=== PATIENT | female | born 1995 | race Caucasian/White ===

== ENCOUNTER 2016-05-14 12:07 | Emergency (ER) | payer MEDICAID ==
[2014-12-20 04:32] VITALS: BMI 24.1
[~2016-05-14 12:07] MED LIST: HYDROCODONE-APA1 TAB PO; IBUPROFEN600 MG PO; PRENAVITE1 TAB PO
== END 2016-05-14 14:02 | disposition left against medical advice (07) ==
LOC: D.ER 12:07
DX: R10.30 Lower abdominal pain, unspecified (principal)

== ENCOUNTER 2016-07-03 01:57 | Emergency (ER) | payer MEDICAID ==
[2014-12-20 04:32] VITALS: BMI 24.1
== END 2016-07-03 03:18 | disposition home or self-care (01) ==
LOC: D.ER 01:57
DX: J06.9 Acute upper respiratory infection, unspecified (principal); F41.9 Anxiety disorder, unspecified; F17.200 Nicotine dependence, unspecified, uncomplicated

== ENCOUNTER 2016-11-12 23:33 | Emergency (ER) | payer MEDICAID ==
[2014-12-20 04:32] VITALS: BMI 24.1
== END 2016-11-13 00:52 | disposition home or self-care (01) ==
LOC: D.ER 23:33
DX: O26.892 Other specified pregnancy related conditions, second trimester (principal); Z3A.17 17 weeks gestation of pregnancy; R00.2 Palpitations; T43.595A Adverse effect of other antipsychotics and neuroleptics, initial encounter; Y92.89 Other specified places as the place of occurrence of the external cause

== ENCOUNTER 2016-11-17 08:27 | Emergency (ER) | payer MEDICAID ==
[2014-12-20 04:32] VITALS: BMI 24.1
[2016-11-17 09:13] LABS: BASOPHILS 0 % (0-2); EOSINOPHILS 0.4 % (0-7); HEMATOCRIT 31.4 % (36.0-48.0); IMMATURE GRANULOCYTES 0.2 % (0-5); LYMPHOCYTES 15.8 % (15-50); MCH 32.3 pg (26.0-34.0); MCV 92.1 fL (80.0-100.0); MEAN PLATELET VOLUME 10.6 fL (7.4-10.4); MONOCYTES 6.5 % (2-11); NEUTROPHILS 77.1 % (40-80); RBC 3.41 10x6/uL (4.00-5.40); RDW 12.6 % (11.5-14.5)
[2016-11-17 09:18] LABS: PLATELET COUNT 172 10x3/uL (130-400)
[2016-11-17 09:35] LABS: ALBUMIN 3.3 g/dL (3.4-5.0); ALKALINE PHOSPHATASE 48 U/L (46-116); ALT (SGPT) 11 U/L (10-68); BILIRUBIN - TOTAL 0.11 mg/dL (0.2-1.3); CALC OSMOLALITY 270 mosm/kg (275-300); CALCIUM 8.2 mg/dL (8.5-10.1); CARBON DIOXIDE 24.9 mmol/L (21.0-32.0); CHLORIDE - SERUM 102 mmol/L (98-107); CREATININE - SERUM 0.5 mg/dL (0.6-1.3); GLUCOSE 79 mg/dL (74-106); POTASSIUM - SERUM 3.6 mmol/L (3.5-5.1); SODIUM 137 mmol/L (136-145); UREA NITROGEN 7 mg/dL (7-18); eGFR NON AFRICAN AMERICAN > 90 mL/min (90-120)
[2016-11-17 10:32] LABS: APPEARANCE HAZY (CLEAR); BILIRUBIN NEGATIVE (NEGATIVE); COLOR YELLOW (YELLOW); GLUCOSE NEGATIVE (NEGATIVE); KETONE NEGATIVE (NEGATIVE); LEUKOCYTE ESTERASE TRACE (NEGATIVE); NITRITE NEGATIVE (NEGATIVE); PROTEIN NEGATIVE (NEGATIVE); UROBILINOGEN NORMAL (NORMAL)
[2016-11-17 10:35] LABS: BACTERIA MANY /hpf (NONE SEEN); MUCUS >1+ /lpf (NONE SEEN); WHITE CELLS - URINE 0-5 /hpf (0-5)
== END 2016-11-17 11:37 | disposition home or self-care (01) ==
LOC: D.ER 08:27
PROVIDERS: Family Medicine
DX: O26.892 Other specified pregnancy related conditions, second trimester (principal); Z3A.18 18 weeks gestation of pregnancy; R10.9 Unspecified abdominal pain

== ENCOUNTER → 2017-02-23 15:50 | Outpatient (CLI) | payer MEDICAID ==
[2014-12-20 04:32] VITALS: BMI 24.1
== END | disposition home or self-care (01) ==
LOC: D.LDO 15:50
DX: O26.893 Other specified pregnancy related conditions, third trimester (principal); Z3A.31 31 weeks gestation of pregnancy

== ENCOUNTER → 2017-02-26 18:19 | Outpatient (CLI) | payer MEDICAID ==
[2014-12-20 04:32] VITALS: BMI 24.1
== END | disposition home or self-care (01) ==
LOC: D.LDO 18:19
DX: Z34.93 Encounter for supervision of normal pregnancy, unspecified, third trimester (principal); Z3A.32 32 weeks gestation of pregnancy

== ENCOUNTER → 2017-03-03 16:22 | Outpatient (CLI) | payer MEDICAID ==
[2014-12-20 04:32] VITALS: BMI 24.1
== END | disposition home or self-care (01) ==
LOC: D.LDO 16:22
DX: O09.893 Supervision of other high risk pregnancies, third trimester (principal); Z3A.33 33 weeks gestation of pregnancy

== ENCOUNTER → 2017-03-06 13:08 | Outpatient (CLI) | payer MEDICAID ==
[2014-12-20 04:32] VITALS: BMI 24.1
== END | disposition home or self-care (01) ==
LOC: D.LDO 13:08
DX: O26.893 Other specified pregnancy related conditions, third trimester (principal); Z3A.34 34 weeks gestation of pregnancy

== ENCOUNTER → 2017-03-10 13:28 | Outpatient (CLI) | payer MEDICAID ==
[2014-12-20 04:32] VITALS: BMI 24.1
== END | disposition home or self-care (01) ==
LOC: D.LDO 13:28
DX: O26.893 Other specified pregnancy related conditions, third trimester (principal); Z3A.34 34 weeks gestation of pregnancy

== ENCOUNTER → 2017-03-14 14:03 | Outpatient (CLI) | payer MEDICAID ==
[2014-12-20 04:32] VITALS: BMI 24.1
== END | disposition home or self-care (01) ==
LOC: D.LDO 14:03
DX: O09.893 Supervision of other high risk pregnancies, third trimester (principal); Z3A.34 34 weeks gestation of pregnancy

== ENCOUNTER → 2017-03-19 16:15 | Outpatient (CLI) | payer MEDICAID ==
[2014-12-20 04:32] VITALS: BMI 24.1
== END | disposition home or self-care (01) ==
LOC: D.LDO 16:15
DX: O26.893 Other specified pregnancy related conditions, third trimester (principal); Z3A.35 35 weeks gestation of pregnancy

== ENCOUNTER 2017-04-01 04:59 | Inpatient (IN) | payer MEDICAID ==
[~2017-04-01] VITALS: Ht 167.6 cm; Wt 71.8 kg
[2017-04-01] VITALS (13 sets, daily range): BP systolic 114–130; BP diastolic 56–74; Ht 167.6 cm; Wt 71.8 kg
--- NOTE | ~2017-04-01 | DS ---
PATIENT:TETO MANSFIELD :89 MEDICAL RECORD: [id number] DISCHARGE SUMMARY ADMISSION DATE: 04/01/17 DISCHARGE DATE: 04/03/17 DATE OF ADMISSION: 04/01/2017. DATE OF DISCHARGE: 04/03/2017. ADMISSION DIAGNOSIS: at term. DISCHARGE DIAGNOSIS: at term. PROCEDURE: section. HISTORY OF PRESENT ILLNESS: See the H&P in the chart. SUMMARY OF HOSPITALIZATION: The patient was admitted with a history of prior section. The patient has had a previous history of abruptio placenta. The patient underwent repeat section without incident and at the time of discharge, tolerating regular diet with adequate pain control on oral medications. She is reporting a headache at this time. She is up, appearing very comfortable with tending to the . I will discharge her with Fioricet. The patient's vital signs are stable. No clinical evidence of preeclampsia. Followup early next week for staple removal. Standard and postoperative precautions have been reviewed. TRANSINT:[id number] Voice Confirmation ID: [id number] DOCUMENT ID: [id number] REILLY REDDY MD at 0658 CC: [id number] DICTATION DATE: 04/03/17 1009 WHEEL OF FORTUNE DEALER: 04/03/17 1540 DIS IN 04/03/17 [id number] [place] [address]
[2017-04-01 05:53] LABS: HEMOGLOBIN 9.9 g/dL (12-16); MCH 30.7 pg (26.0-34.0); MCV 92.9 fL (80.0-100.0); MEAN PLATELET VOLUME 10.9 fL (7.4-10.4); RBC 3.23 10x6/uL (4.00-5.40); RDW 12.7 % (11.5-14.5); WBC 10.5 10x3/uL (4.8-10.8)
[2017-04-01 06:22] LABS: APPEARANCE CLOUDY (CLEAR); COLOR YELLOW (YELLOW)
[2017-04-01 06:23] LABS: BILIRUBIN NEGATIVE (NEGATIVE); GLUCOSE NEGATIVE (NEGATIVE); KETONE NEGATIVE (NEGATIVE); NITRITE NEGATIVE (NEGATIVE); PROTEIN 1+ mg/dL (NEGATIVE); UROBILINOGEN NORMAL (NORMAL)
[2017-04-01 06:25] LABS: BACTERIA MANY /hpf (NONE SEEN); EPITHELIAL CELLS 0-5 /hpf (0-5); RED CELLS - URINE 0-5 /hpf (0-5); WHITE CELLS - URINE 0-5 /hpf (0-5)
[2017-04-01 14:26] LABS: BASOPHILS 0.1 % (0-2); EOSINOPHILS 0.2 % (0-7); HEMATOCRIT 28.5 % (36.0-48.0); HEMOGLOBIN 9.6 g/dL (12-16); IMMATURE GRANULOCYTES 0.4 % (0-5); LYMPHOCYTES 13.8 % (15-50); MCH 31.5 pg (26.0-34.0); MCHC 33.7 g/dL (31.0-37.0); MCV 93.4 fL (80.0-100.0); NEUTROPHILS 78.5 % (40-80); PLATELET COUNT 250 10x3/uL (130-400); RBC 3.05 10x6/uL (4.00-5.40); RDW 12.6 % (11.5-14.5)
[2017-04-01 14:29] LABS: WBC 16.9 10x3/uL (4.8-10.8)
[2017-04-02 01:26] VITALS: BP 113/59
[2017-04-02 06:43] VITALS: BP 96/55
[2017-04-02 07:22] LABS: RAPID PLASMA REAGIN Non Reactive (Non Reactive)
[2017-04-02 07:58] LABS: BASOPHILS 0.1 % (0-2); EOSINOPHILS 1.8 % (0-7); HEMOGLOBIN 9.1 g/dL (12-16); IMMATURE GRANULOCYTES 0.3 % (0-5); LYMPHOCYTES 22.2 % (15-50); MCH 31.5 pg (26.0-34.0); MCHC 33.7 g/dL (31.0-37.0); MCV 93.4 fL (80.0-100.0); MEAN PLATELET VOLUME 10.3 fL (7.4-10.4); MONOCYTES 9.3 % (2-11); NEUTROPHILS 66.3 % (40-80); PLATELET COUNT 227 10x3/uL (130-400); RBC 2.89 10x6/uL (4.00-5.40); RDW 12.6 % (11.5-14.5)
[2017-04-02 08:21] LABS: WBC 9.5 10x3/uL (4.8-10.8)
[2017-04-02 18:00] VITALS: BP 125/65
[2017-04-02 19:10] VITALS: BP 121/62
[2017-04-03 01:54] VITALS: BP 122/70
[2017-04-03 05:10] VITALS: BP 109/67
[2017-04-03 08:02] VITALS: BP 103/61
[2017-04-03] MEDS ORDERED: HYDROCODONE-APA1 TAB PO (10:55)
[2017-04-03] MEDS ORDERED: IBUPROFEN600 MG PO (10:55)
== END 2017-04-03 12:13 | disposition home or self-care (01) | DRG 766 ==
LOC: D.LD 04:59
PROVIDERS: Obstetrics & Gynecology
PROC: 10D00Z1 Extraction of Products of Conception, Low, Open Approach (ICD-10-PCS; principal; 2017-04-01 07:30)
DX: O34.219 Maternal care for unspecified type scar from previous cesarean delivery (principal); Z3A.37 37 weeks gestation of pregnancy; Z37.0 Single live birth; O99.344 Other mental disorders complicating childbirth

== ENCOUNTER 2019-07-05 10:32 | Inpatient (IN) | payer MEDICAID ==
[~2019-07-05] VITALS: Ht 167.6 cm; Wt 71.7 kg
[2019-07-05] VITALS (18 sets, daily range): BP systolic 115–163; BP diastolic 69–103; Ht 167.6 cm; Wt 71.7 kg
[2019-07-05 11:40] LABS: BASOPHILS 0.1 % (0-2); EOSINOPHILS 0.3 % (0-7); HEMATOCRIT 37.3 % (36.0-48.0); HEMOGLOBIN 12.6 g/dL (12-16); IMMATURE GRANULOCYTES 0.2 % (0-5); LYMPHOCYTES 12.8 % (15-50); MCH 32.3 pg (26.0-34.0); MCHC 33.8 g/dL (31.0-37.0); MCV 95.6 fL (80.0-100.0); MEAN PLATELET VOLUME 12.2 fL (7.4-10.4); MONOCYTES 5.5 % (2-11); NEUTROPHILS 81.1 % (40-80); RDW 12.5 % (11.5-14.5); WBC 13.3 10x3/uL (4.8-10.8)
[2019-07-05 11:42] LABS: PLATELET COUNT 144 10x3/uL (130-400)
[2019-07-05 11:49] LABS: CALC OSMOLALITY 266 mosm/kg (275-300); CALCIUM 8.3 mg/dL (8.5-10.1); CARBON DIOXIDE 24.9 mmol/L (21.0-32.0); CHLORIDE - SERUM 104 mmol/L (98-107); CREATININE - SERUM 0.9 mg/dL (0.6-1.3); GLUCOSE 87 mg/dL (74-106); POTASSIUM - SERUM 4.3 mmol/L (3.5-5.1); SODIUM 134 mmol/L (136-145); UREA NITROGEN 13 mg/dL (7-18); eGFR NON AFRICAN AMERICAN 82 mL/min (90-120)
[2019-07-05 11:53] LABS: ALBUMIN 2.4 g/dL (3.4-5.0); ALKALINE PHOSPHATASE 98 U/L (30-120); ALT (SGPT) 11 U/L (10-68); BILIRUBIN - DIRECT 0.08 mg/dL (0.00-0.30); BILIRUBIN - INDIRECT 0.13 mg/dL (0.00-1.00); BILIRUBIN - TOTAL 0.21 mg/dL (0.2-1.3); PROTEIN - SERUM 5.6 g/dL (6.4-8.2); URIC ACID 7.4 mg/dL (2.6-7.2)
--- NOTE | 2019-07-05 12:53 | NUR ---
BABY BORN AT 1237
--- NOTE | 2019-07-05 13:18 | NUR ---
XRAY CAME AT END OF CASE TO DO END OF CASE XRAY BECAUSE NO COUNT WAS DONE PRIOR TO INCISION. STAT C SECTION
[2019-07-05 14:01] LABS: HEMATOCRIT 33.9 % (36.0-48.0); HEMOGLOBIN 11.3 g/dL (12-16); MCHC 33.3 g/dL (31.0-37.0); RBC 3.53 10x6/uL (4.00-5.40); RDW 12.6 % (11.5-14.5); WBC 14.8 10x3/uL (4.8-10.8)
--- NOTE | 2019-07-05 14:08 | NUR ---
THIS RN TO ROOM TO RECEIVE PT FROM G[employer] UTILITY WORKERSHIRA ALLEN OBTAINED BY JUAN SANON AT 1400 FOR SIGN OFF. PT AAOx3, C/O PAIN, RATING PAIN 10/10. BP NOTED TO BE 161/103. ORDERS FROM DR VILLEDA REVIEWED. WILL ADMIN PRN PAIN MEDS AND REEVALUATE BP. PT PITOCIN IV INFUSING TO RIGHT AC VIA GRAVITY DRIP TITRATED WITH ROLLER CLAMP. IV PUT ON PUMP AND SET ORDERED. ABD DRESSING NOTED TO BE C/D/I. FUNDUS BOGGY, FIRMS WITH MASSAGE, ML, U/2. MODERATE TO HEAVY RUBRA LOCHIA. FAB STATES "THAT'S NEW SINCE COMING OUT OF RECOVERY." PERICARE DONE, PT REFUSES FURTHER MOVEMENT TO HAVE BED PADS CHANGED UNTIL HER PAIN IS TREATED. QUINTANILLA CATH DRAINING CLEAR YELLOW URINE TO BEDSIDE DRAINAGE. STAT LOCK PLACED TO INNER RIGHT THIGH AND TUBING SECURED. SCD'S ON LE BILAT AND ON PUMP. MILD GENERALIZED EDEMA NOTED TO LE BILAT. SL IN RIGHT UPPER ARM IS C/D/I. WILL PROCEED WITH ORDERED MEDS.
[2019-07-05 14:21] LABS: CALC OSMOLALITY 267 mosm/kg (275-300); CALCIUM 7.8 mg/dL (8.5-10.1); CARBON DIOXIDE 23.5 mmol/L (21.0-32.0); CHLORIDE - SERUM 105 mmol/L (98-107); CREATININE - SERUM 0.9 mg/dL (0.6-1.3); GLUCOSE 88 mg/dL (74-106); POTASSIUM - SERUM 4.5 mmol/L (3.5-5.1); SODIUM 135 mmol/L (136-145); UREA NITROGEN 10 mg/dL (7-18); eGFR NON AFRICAN AMERICAN 82 mL/min (90-120)
[2019-07-05 14:24] LABS: URIC ACID 6.8 mg/dL (2.6-7.2)
--- NOTE | 2019-07-05 14:25 | NUR ---
DILAUDID SUPERVISOR WEAVING SET UP ORDERED, SEE EMAR FOR DOC. PT AND SIG OTHER INSTRUCTED ON USE AND IS PT ADMIN ONLY. UNDERSTANDING VERBALIZED. 0.4MG BOLUS DOSE ADMIN VIA SUPERVISOR WEAVING PUMP ORDERED.
--- NOTE | 2019-07-05 14:31 | NUR ---
FF, ML, U/2. MOD RUBRA LOCHIA NOTED. PERICARE DONE. TORADOL ADMIN ORDERED, SEE EMAR.
--- NOTE | 2019-07-05 14:45 | NUR ---
MAG SULFATE 6G LOADING DOSE INITIATED WELL 1/2NS, SEE EMAR FOR DOC. SEE MAG SULFATE FLOWSHEET IN PAPER CHART FOR NEURO CHECKS AND VS.
--- NOTE | 2019-07-05 15:00 | NUR ---
FF, ML, U/2. MOD RUBRA LOCHIA, NO CLOTS. PADS CHANGED.
--- NOTE | 2019-07-05 15:12 | NUR ---
MAG SULFATE LOADING DOSE COMPLETE, 2G/H MAINTENANCE BAG INITIATED. SEE EMAR.
--- NOTE | 2019-07-05 15:35 | NUR ---
DR VILLEDA PHONED AND NOTIFIED OF MOD TO HEAVY LOCHIA, PT'S BP'S BEFORE AND AFTER MAG SULFATE. ORDER RECEIVED FOR 50MCG CYTOTEC PO x 1 NOW, AND CONTINUE TO MONITOR LOCHIA. IF REMAINS MOD TO HEAVY, DRAW CBC AT 1800.
--- NOTE | 2019-07-05 15:54 | NUR ---
PT ADMIN CYTOTEC ORDERED, PT AND SIG OTHER UPDATED ON POC. FUNDUS FIRMS WITH MASSAGE. MOD TO HEAVY RUBRA LOCHIA NOTED. PERICARE DONE, BED PADS CHANGED. WILL CONT TO MONITOR.
--- NOTE | 2019-07-05 16:11 | NUR ---
PT ADMIN ZOFRAN ORDERED PRN FOR NAUSEA.
--- NOTE | 2019-07-05 16:58 | NUR ---
LAB TO ROOM FOR ORDERED CBC. FUNDAL CHECK DONE, FUNDUS FIRMS WITH MASSAGE, U/2. MODERATE RUBRA LOCHIA, NO CLOTS. PERIPADS CHANGED. PT REPOSITIONS ONTO RIGHT SIDE. HOURLY CHECKS COMPLETED, DECREASED URINE OUTPUT NOTED. WILL NOTIFY MD WITH CBC RESULTS.
[2019-07-05 16:59] LABS: HEMATOCRIT 27.4 % (36.0-48.0); HEMOGLOBIN 8.9 g/dL (12-16); MCH 31.2 pg (26.0-34.0); MCHC 32.5 g/dL (31.0-37.0); MCV 96.1 fL (80.0-100.0); MEAN PLATELET VOLUME 11.2 fL (7.4-10.4); PLATELET COUNT 139 10x3/uL (130-400); RBC 2.85 10x6/uL (4.00-5.40); RDW 12.5 % (11.5-14.5); WBC 23.2 10x3/uL (4.8-10.8)
[2019-07-05 17:24] LABS: LYMPHOCYTES 7 % (15-50); NEUTROPHILS 93 % (40-80); PLATELET ESTIMATE NORMAL
--- NOTE | 2019-07-05 17:30 | NUR ---
DR VILLEDA PHONES UNIT FOR UPDATE ON PT. CBC REPORTED WELL URINE OUTPUT FOR PAST 2 HOURS OF 25ML AND 20ML. REPORT GIVEN ON MOD TO HEAVY LOCHIA, WITH BOGGY FUNDUS THAT FIRMS WITH MASSAGE. ORDER RECEIVED TO STOP MAG SULFATE NOW, REPEAT CBC AT 1900, AND CALL WITH RESULTS. WILL PROCEED ORDERED.
[2019-07-05 17:32] LABS: CALC OSMOLALITY 274 mosm/kg (275-300); CALCIUM 7.8 mg/dL (8.5-10.1); CARBON DIOXIDE 24.8 mmol/L (21.0-32.0); CHLORIDE - SERUM 106 mmol/L (98-107); CREATININE - SERUM 0.9 mg/dL (0.6-1.3); GLUCOSE 104 mg/dL (74-106); POTASSIUM - SERUM 4.5 mmol/L (3.5-5.1); SODIUM 137 mmol/L (136-145); eGFR NON AFRICAN AMERICAN 82 mL/min (90-120)
--- NOTE | 2019-07-05 17:32 | NUR ---
MAG SULFATE IV INFUSION STOPPED.
[2019-07-05 17:43] LABS: UREA NITROGEN 15 mg/dL (7-18)
--- NOTE | 2019-07-05 18:45 | NUR ---
THIS RN TO ROOM FOR PT CHECK. PT AWAKE AND TEXTING ON PHONE, LYING ON RIGHT SIDE. PT POSITIONED TO SUPINE FOR FUNDAL CHECK. FF, ML, U/2. SMALL TO MOD RUBRA LOCHIA NOTED TO PERIPAD, NO CLOTS. PERIPAD CHANGED, PERICARE DONE AND BEDPADS CHANGED. GOWN CHANGED PER LEAKING ICE PACK. NEW ICE PACK PROVIDED AND PLACED TO ABD. URINE OUTPUT NOTED TO BE INCREASING AND CLEARING IN COLOR. APPROX 90ML NOTED IN UROMETER AT THIS TIME. PT QUESTIONING ABOUT BREAST PUMP. WILL NOTIFY PM SHIFT. PT DENIES NEEDS AT THIS TIME. SRUx2, CL IN REACH.
--- NOTE | 2019-07-05 18:50 | NUR ---
LAB TO ROOM FOR ORDERED LAB.
[2019-07-05 19:05] LABS: BASOPHILS 0.1 % (0-2); EOSINOPHILS 0 % (0-7); HEMOGLOBIN 8.8 g/dL (12-16); IMMATURE GRANULOCYTES 0.4 % (0-5); LYMPHOCYTES 5.9 % (15-50); MCH 32.4 pg (26.0-34.0); MCHC 33.8 g/dL (31.0-37.0); MCV 95.6 fL (80.0-100.0); MEAN PLATELET VOLUME 11.4 fL (7.4-10.4); NEUTROPHILS 89.6 % (40-80); PLATELET COUNT 132 10x3/uL (130-400); RBC 2.72 10x6/uL (4.00-5.40); RDW 12.6 % (11.5-14.5); WBC 24.7 10x3/uL (4.8-10.8)
--- NOTE | 2019-07-05 19:05 | NUR ---
REPORT TO PM SHIFT.
--- NOTE | 2019-07-05 19:15 | NUR ---
pt rec'd alert and oriented, assessment completed see shift assessment, additional assessment notes, dtr's wnl, denies long, fundus firm, u/-1 janel pads replaced noting 50% saturation. c/o thirst requesting more po fluid, educated on need to closely monitor oral intake until out put increasing and or dr briones orders clear liquid diet. pt teaching on IS. Return demonstration acceptable
--- NOTE | 2019-07-05 20:15 | NUR ---
LABS REPORTED TO DR VILLEDA AT THIS TIME, NEW ORDERS NOTED TO TRANSFUSE ONE UNIT PRBC'S.
--- NOTE | 2019-07-05 20:30 | NUR ---
PT INFORMED OF PLAN OF CARE, BLOOD TRANSFUSION CONSENT ON CHART.
--- NOTE | 2019-07-05 21:24 | NUR ---
1 u prbc verified w/ garth jaime rn at bedside, pt name, blod type, verified along with matching unit info to blood band, blood bag, blood bank id number and the number on the blood bag. vs recorded, adverse reactions explained to patient, remained at bedside for first 15 min of infusing. infusion began at 2130 per policy
--- NOTE | 2019-07-05 21:36 | NUR ---
prbc transfusing per order and policy via 18 gauge, left ac
--- NOTE | 2019-07-05 23:10 | NUR ---
resting quietly in bed w/ eyes closed, fundus firm, u/-1, janel pads changed, aprox 50%saturated, enamorado emptied aprox 35ml dtr's 2-3, bsc
[2019-07-06] VITALS (10 sets, daily range): BP systolic 120–142; BP diastolic 77–93
--- NOTE | 2019-07-06 00:25 | NUR ---
to bedside for hourly check, dtr's 2+-3+, fundus firm, u/-1, prbc's aprox 75ml ltc, bsc&e. denies needs at this time
--- NOTE | 2019-07-06 00:41 | NUR ---
PT NOW C/O RIGHT SIDED EPIGASTRIC PAIN, DTR'S +2-+3, DENIES BLURRED VISION OR SPOTS IN VISUAL FIELD, DENIES H/A, WILL CONTINUE TO MONITOR
--- NOTE | 2019-07-06 01:03 | NUR ---
CALL TO DR REDDY AT 0055, REPORT GIVEN REGARDING NEW PT COMPLAINT OF RIGHT SIDED EPIGASTRIC PAIN, ALSO REPORTED PRBC'S ALMOST COMPLETE, DTR'S =2-=3, DENIES SANDRES, OR VISUAL DISTURBANCES, ORDERS REC'D FOR STAT LAB, CALL TO LAB AND REQUESTED DRAW, LAB IN ROOM AT THIS TIME FOR DRAW
[2019-07-06 01:12] LABS: BASOPHILS 0.1 % (0-2); EOSINOPHILS 0.1 % (0-7); HEMATOCRIT 25.7 % (36.0-48.0); HEMOGLOBIN 8.5 g/dL (12-16); IMMATURE GRANULOCYTES 0.3 % (0-5); LYMPHOCYTES 11.2 % (15-50); MCH 30.9 pg (26.0-34.0); MCHC 33.1 g/dL (31.0-37.0); MEAN PLATELET VOLUME 10.7 fL (7.4-10.4); NEUTROPHILS 84.3 % (40-80); RBC 2.75 10x6/uL (4.00-5.40)
[2019-07-06 01:17] LABS: MCV 93.5 fL (80.0-100.0); PLATELET COUNT 98 10x3/uL (130-400); WBC 15.1 10x3/uL (4.8-10.8)
[2019-07-06 01:22] LABS: APTT 24.7 SECONDS (22.8-39.4); INR 1.03 (0.85-1.17); PROTIME 13.4 SECONDS (11.6-15.0)
[2019-07-06 01:44] LABS: ANION GAP 10.5 mmol/L (8-16); CALCIUM 7.1 mg/dL (8.5-10.1); CARBON DIOXIDE 22.2 mmol/L (21.0-32.0); POTASSIUM - SERUM 4.7 mmol/L (3.5-5.1)
[2019-07-06 01:48] LABS: URIC ACID 7.2 mg/dL (2.6-7.2)
--- NOTE | 2019-07-06 02:03 | NUR ---
LAB RESULTS GIVEN TO DR REDDY, ORDERS REC'D TO REPEAT IN 4 HOURS AT 0600.
--- NOTE | 2019-07-06 04:16 | NUR ---
in room at 0400 for hourly check, dtr's +2, denies epigastric pain, no clonus, uop inproving and urine more clear. denies needs at this time
--- NOTE | 2019-07-06 06:16 | NUR ---
in room for hourly assessment, denies epigastric pain, dtr's +2, denies headache, c/o hunger, requesting regular diet
[2019-07-06 06:49] LABS: ALT (SGPT) 9 U/L (10-68); BASOPHILS 0.1 % (0-2); CALC OSMOLALITY 262 mosm/kg (275-300); CARBON DIOXIDE 22.9 mmol/L (21.0-32.0); CHLORIDE - SERUM 103 mmol/L (98-107); CREATININE - SERUM 0.8 mg/dL (0.6-1.3); EOSINOPHILS 0.3 % (0-7); GLUCOSE 74 mg/dL (74-106); HEMATOCRIT 25.4 % (36.0-48.0); HEMOGLOBIN 8.5 g/dL (12-16); IMMATURE GRANULOCYTES 0.3 % (0-5); LYMPHOCYTES 16.6 % (15-50); MCH 31.4 pg (26.0-34.0); MCHC 33.5 g/dL (31.0-37.0); MCV 93.7 fL (80.0-100.0); MEAN PLATELET VOLUME 11.6 fL (7.4-10.4); MONOCYTES 5.3 % (2-11); NEUTROPHILS 77.4 % (40-80); PLATELET COUNT 104 10x3/uL (130-400); POTASSIUM - SERUM 4.4 mmol/L (3.5-5.1); RBC 2.71 10x6/uL (4.00-5.40); RDW 13.5 % (11.5-14.5); SODIUM 133 mmol/L (136-145); WBC 11.9 10x3/uL (4.8-10.8); eGFR NON AFRICAN AMERICAN > 90 mL/min (90-120)
[2019-07-06 06:50] LABS: UREA NITROGEN 7 mg/dL (7-18)
--- NOTE | 2019-07-06 07:35 | NUR ---
TO ROOM, AM ASSESSMENT COMPLETED. SEE FLOWSHEET. DR. VILLEDA IN ROOM SPEAKING WITH PT, MD REMOVES WHITE DRESSING TO INCISION, WHICH REVEALS HARITHA, INTACT, NO REDNESS OR SWELLING NOTED TO INCISION.
--- NOTE | 2019-07-06 08:00 | NUR ---
QUINTANILLA CATH REMOVED WITH 20 ML'S LIGHT YELLOW URINE EMPTIED. PERICARE DONE WITH WARM WET WASHCLOTHS, PERIPANTIES AND PADS ON. FUNDUS FIRM, U/1, SMALL RUBRA LOCHIA NOTED, NO CLOTS EXPRESSED. TOWELS/CHUX CHANGED. PT WANTS SCD'S REMOVED FOR NOW, SKIN ASSESSMENT DONE, NO REDNESS OR BREAKDOWN NOTED TO EXTR. DIETARY HAS SERVED REGULAR BREAKFST TRAY. PT SERVED LARGE GLASS OF ICE WATER, AND ORANGE JUICE PER HER REQUEST. SRUP X 2, CALL LIGHT AND PHONE WITHIN REACH.
--- NOTE | 2019-07-06 08:10 | NUR ---
PT C/O NAUSEA, ZOFRAN 4 MG GIVEN SIVP DILUTED WITH 10 CC'S NS. COOL WASHCLOTH PROVIDED FOR FACE/NECK. EMESIS BAG PROVIDED. PT DENIES SOB, OR DIFFICULTY BREATHING. SRUP X2, CALL LIGHT AND PHONE WITHIN REACH.
--- NOTE | 2019-07-06 09:45 | NUR ---
PT CALLS OUT CORE RESCUER LIGHT REQUESTING TO GET UP TO THE BATHROOM. TO PT'S ROOM, PT IS ALSO C/O "DULL HEADACHE", ALONG WITH INCISIONAL PAIN/ABD CRAMPING. SEE EMAR FOR ALL MEDS ADM BY THIS RN.
--- NOTE | 2019-07-06 09:50 | NUR ---
PT DENIES N/V, DIZZINESS OR SOB. PT ASSISTED UP TO BR, GAIT SLOW AND STEADY, PT THEN VOIDS 400 ML'S IN [place] HAT, 4-5 DIME SIZED CLOTS NOTED. PERICARE DONE WITH WARM WET WASHCLOTHS PER SELF, PERIPANTIES AND PAD ON. CLEAN GOWN ON. PT UP TO SINK, WASHES FACE/HANDS. BACK TO BED, PT IS SITTING ON SIDE OF BED. BREASTPUMP PROVIDED, PT IS ASSEMBLING PUMP, THIS RN CALLED TO NSY SO NSY RN CAN ATTEND DELIVERY. PT DENIES ALL OTHER NEEDS AT THIS TIME. SRUP X2, CALL LIGHT AND PHONE WITHIN REACH.
--- NOTE | 2019-07-06 10:55 | NUR ---
SL TO RIGHT HAND FLUSHED WITH 10 CC'S NS, PT REPORTS BURNING WITH FIRST 5 ML'S OF FLUSH, THEN DENIES PAIN. NO REDNESS OR SWELLING NOTED TO IV SITE, IV FLUSHES AND INFUSING NS WELL. SIDE EFFECTS/SYMPTOMS TO WATCH FOR WITH BLOOD REACTION PROVIDED TO PT. PT AGREES TO BLOOD TRANSFUSION.
--- NOTE | 2019-07-06 11:00 | NUR ---
PRBC'S STARTED AT 100 ML/HR, UNIT # [id number].
--- NOTE | 2019-07-06 11:50 | NUR ---
UP TO BR PER SELF, GAIT SLOW AND STEADY. PT VOIDS 400 ML'S INTO [place] HAT, PERICARE DONE PER SELF. PT BACK TO BED, DENIES DIZZINESS, SOB, OR DIFFICULTY BREATHING. DERVES REGULAR LUNCH TRAY. LARGE GLASS OF ICE WATER SERVED. SRUP X2, CALL LIGHT AND PHONE WITHIN REACH.
--- NOTE | 2019-07-06 13:41 | NUR ---
PRBC TRANSFUSION COMPLETED. SWITCHED OVER TO FLUSH LINE. VSS. C/O ABD AND INCISIONAL DISCOMFORT, NORCO PROVIDED PER ORDER AND PT REQUEST. DENIES ADDITIONAL NEEDS. SIGNIFICANT OTHER AT BEDSIDE, SUPPORTIVE AND ATTENTIVE TO PT NEEDS. BED IN LOW POSITION WITH SRUP X2. CALL LIGHT AND PHONE WITHIN REACH. WILL CONTINUE TO MONITOR.
--- NOTE | 2019-07-06 16:50 | NUR ---
PT CALLS OUT ARABIC TEACHER LIGHT AND REQUESTS HELP RINSING OUT BREAST PUMP BOTTLES/EQUIPMENT. PT WAS ABLE TO PUMP APPROX 5 MLS COLOSTRUM, LABELED AND PUT IN NURSERY FRIDGE. IBUPROFEN 600 MG ONE PO GIVEN, SEE EMAR FOR ALL MEDS ADM BY THIS RN. KHUSHI LEMON U[place]ER [place] SERVED. PT STATES SHE HAS BEEN UP TO THE BR, VOIDED PER SELF, 400 ML'S YELLOW URINE NOTED IN [place] HAT. DIETARY SERVES REGULAR SUPPER TRAY, PT DENIES ALL OTHER NEEDS AT THIS TIME. SRUP X2, CALL LIGHT AND PHONE WITHIN REACH.
--- NOTE | 2019-07-06 18:03 | NUR ---
PT CALLS ON LIGHT. REQUESTS PAIN MED. NORCO GIVEN PO ORDERED FOR PT C/O INCISIONAL PAIN OF "6" ON 0-10 PAIN SCALE. PT INSTRUCTED ON MED. VERBALIZES UNDERSTANDING.
--- NOTE | 2019-07-06 20:30 | NUR ---
rEPORT GIVEN BY JUAN RUSSELL
--- NOTE | 2019-07-06 20:31 | NUR ---
PT ASSESSMENT COMPLETE. PT IS STILL IN PAIN FROM HER INCISION SITE. SHE RATES HER PAIN A 6. FUNDUS IS FIRM. HEART SOUNDS GOOD. LUNGS SOUND CLEAR. BOWEL SOUNDS HEARD. PT HAS A PAD SITUATED OVER HER STAPLE SITE. SHE GETS UP TO THE BATHROOM BUT SHE STATES IT'S PAINFUL AND SHE WILL STAY IN BED MORE. I EXPLAINED TO HER HOW IMPORTANT IT IS FOR HER TO GET UP TO PREVENT BLOOD CLOTS, TO PREVENT PNEUMONIA. SHE LISTENED. SHE TALKS ABOUT THE BAGY THAT IS IN LR AT [facility]. SHE IS PUMPING BREAST MILK TO FREEZE TO TAKE TO LR WHEN SHE GOES. PT STATES BLEEDING IS SMALL TO MODERATE. INSTRUCTED TO CALL WHEN AND IF SHE NEEDED ANYTHING.
--- NOTE | 2019-07-06 21:20 | NUR ---
PT CALLED ME TO HER ROOM TO LET ME SEE THESE 2 TOMATO SIZED CLOTS SHE PASSED. HER FUNDUS IS FIRM AND NO HEAVY BLEEDING NOW. I MEMTIONED THIS TO DR. BOSS. SHE ASKED ABOUT HER FUNDUS AND HEART RATE AND BOTH WERE NORMAL. SHE IS NOW EATING CEREAL IN BED. NO C/0
--- NOTE | 2019-07-06 22:30 | NUR ---
PT IS PUMPING HER BREAST TO FREEZE FOR HER BABY. PT HAS NO C/O OR NEEDS AT THIS TIME.
--- NOTE | 2019-07-07 | NUR ---
PT PUMPING HER BREAST AGAIN. VS TAKEN. SHE ASK FOR HER BREAST PUMP TO BE CLEANED. THIS WAS DONE FOR HER. SHE IS GOING TO TRY TO SLEEP NOW.
[2019-07-07 00:10] VITALS: BP 134/84
[2019-07-07 04:00] VITALS: BP 128/79
--- NOTE | 2019-07-07 04:07 | NUR ---
rOUNDS MADE. PT C/O PAIN RATING IT AN 8. VS ARE NORMAL AND CHARTED. NO OTHER C/O BUT PAIN AT THIS TIME. PAIN MED GIVEN.
--- NOTE | 2019-07-07 04:19 | NUR ---
PT GOT UP TO GO TO THE BR. NO CLOTS PASSED. PT STATES BLEEDING IS SMALL. FUNDUS FIRM. PUMPING HER BREAST.
--- NOTE | 2019-07-07 06:10 | NUR ---
PT IS SLEEPING AT THIS TIME. NO C/O OR NEEDS
--- NOTE | 2019-07-07 07:35 | NUR ---
AM ASSESSMENT COMPLETED, SEE FLOWSHEET. PT DENIES HEAVY BLEEDING OR PASSING CLOTS THIS AM. ABDOMEN PALPATES SOFT, HARITHA INTACT. NO REDNESS OR SWELLING NOTED TO INCISIONAL SITE. PT HAS JUST FINISHED BREASTPUMPING, BREASTMILK/COLOSTRUM LABELED, DATED, AND PLACED IN NSY FRIDGE. DIETARY HAS SERVED BREAKFAST TRAY, LARGE GLASS OF ICE WATER SERVED TO PT. PT DENIES ALL OTHER NEEDS AT THIS TIME. SRUP X2, CALL LIGHT AND PHONE WITHIN REACH.
[2019-07-07 07:40] VITALS: BP 139/104
[2019-07-07 07:41] VITALS: BP 153/82
--- NOTE | 2019-07-07 08:40 | NUR ---
DR. VILLEDA AT [facility], BP'S FROM THIS AM SHOWN TO MD. OSEGUERA TO ROOM TO SPEAK WITH PT.
--- NOTE | 2019-07-07 09:40 | NUR ---
PT SITTING ON SIDE OF BED, SEE EMAR FOR ALL MEDS ADM BY THIS RN. PT REQUESTS MORE BOTTLES FOR BREASTPUMPING, PROVIDED, ALONG WITH MUG OF ICE WATER. PT DENIES ALL OTHER NEEDS AT THIS TIME. SRUP X2, CALL LIGHT AND PHONE WITHIN REACH.
--- NOTE | 2019-07-07 11:25 | NUR ---
PT UP TO BR PER SELF, VOIDS UNMEASURED AMOUNT WITHOUT DIFFICULTY, PERICARE DONE PER SELF. WILL RETURN FOR BP CHECK. SIG OTHER AT BEDSIDE. SRUP X2, CALL LIGHT AND PHONE WITHIN REACH.
[2019-07-07 11:42] VITALS: BP 157/101
[2019-07-07 11:44] VITALS: BP 152/96
--- NOTE | 2019-07-07 12:05 | NUR ---
DR. RONAL HENRY MD RETURNS CALL. REPORT GIVEN TO OF BP RECHECK ATER BP MEDICATION ADM THIS AM. 157/101, AND RECHECK 155/94, MD WILL DISCHARGE PT HOME ON PROCARDIA XL 30 MG ONE PO DAILY, #30. MD WANTS PT TO RETURN TO LABOR AND DELIVERY TOMORROW FOR BP RECHECK, AND CALL MD WITH RESULTS.
[2019-07-07] MEDS ORDERED: AUGMENTIN 875-11 TAB PO (13:01)
[2019-07-07] MEDS ORDERED: PROCARDIA XL60 MG PO (13:02)
[2019-07-07] MEDS ORDERED: HYDROCODON-ACE1 EA10 PO (13:03)
[2019-07-07] MEDS ORDERED: IBUPROFEN600 MG PO (13:04)
--- NOTE | 2019-07-07 13:30 | NUR ---
PT GIVEN IBUPROFEN 600 MG ONE PO, AND NORCO 10 MG ONE PO, SEE EMAR FOR MEDS ADM BY THIS RN. DISCHARGE INSTRUCTIONS EXPLAINED TO PT, PROVIDED WITH COPIES, PRESCRIPTIONS GIVEN, APPT GIVEN ALONG WITH EMERGENCY INFO, AND PP INSTRUCTION SHEETS. PT DENIES QUESTIONS. PT PROVIDED WITH BREASTMILK WITH ICE PACK FOR DISCHARGE HOME.
--- NOTE | 2019-07-07 14:15 | NUR ---
PT TAKEN OUT TO PRIVATE VEHICLE IN STABLE CONDITION, BY WHEELCHAIR, WITH SIG OTHER DRIVING.
== END 2019-07-07 14:15 | disposition home or self-care (01) | DRG 788 ==
LOC: D.LDO 10:32 → D.LD 12:31
PROVIDERS: Obstetrics & Gynecology; ADMIT Obstetrics & Gynecology; ATTEND Obstetrics & Gynecology
PROC: 10D00Z1 Extraction of Products of Conception, Low, Open Approach (ICD-10-PCS; principal; 2019-07-05 12:00)
DX: O14.14 Severe pre-eclampsia complicating childbirth (principal); Z3A.31 31 weeks gestation of pregnancy; Z37.0 Single live birth; O45.93 Premature separation of placenta, unspecified, third trimester; O36.8330 Maternal care for abnormalities of the fetal heart rate or rhythm, third trimester, not applicable or unspecified; O99.344 Other mental disorders complicating childbirth; F31.9 Bipolar disorder, unspecified